=== PATIENT | male | born 1990 | race African-American/Black ===

== ENCOUNTER 2020-08-27 12:33 | Emergency (ER) | payer OTHER, MEDICAID, SELFPAY ==
[2020-08-27 12:34] VITALS: BP 137/84; PULSE 74; RESP 15; TEMP 37.1; O2SAT 98; BMI 26.4
--- NOTE | 2020-08-27 12:39 | DI.RAD.S_ITS ---
PROCEDURE: XR SHOULDER RT MIN 2V INDICATIONS: right shoulder pain/injury TECHNIQUE: 3 views of the shoulder were acquired. COMPARISON: None. FINDINGS: Bones: No fractures or dislocations. No suspicious bony lesions. Visualized ribs appear intact. Soft tissues: No suspicious soft tissue calcifications. IMPRESSION: No shoulder fracture or dislocation. Dictated by: Herrera Gallo M.D. on 08/27/2020 at 13:06 Approved by: Herrera Gallo M.D. on 08/27/2020 at 13:08
--- NOTE | 2020-08-27 12:49 | ED.GENADULT ---
HPI - General Adult General Chief complaint: Extremity Injury, Upper Stated complaint: RIGHT SHOULDER FEELS DISLOCATED Time Seen by Provider: 08/27/20 12:44 Source: patient Mode of arrival: Ambulatory Limitations: no limitations History of Present Illness HPI narrative: [age] year hyhcm-zmpz-lqmlkmsb male here for evaluation of right shoulder injury. Patient states he was playing basketball. He went up from a rebound and when he came down hit his elbow on another individual shoulder. He had pain in the front and back of his shoulder since that time. Has not tried anything for it. No prior injuries to the shoulder. Has not tried anything for the symptoms prior to arrival. Related Data Allergies Allergy/AdvReac Type Severity Reaction Status Date / Time No Known Drug Allergies Allergy Verified 08/27/20 12:38 Review of Systems Constitutional Constitutional: Denies chills and Denies fever(s) Cardiovascular Cardiovascular: Denies chest pain and Denies dyspnea Respiratory Respiratory: Denies dyspnea Gastrointestinal Gastrointestinal: Denies abdominal pain Musculoskeletal Comments: Right shoulder pain Integumentary/Breasts Skin/Breast: Denies lesions and Denies rash Neurologic Neurologic: Denies behavioral changes Psychiatric Psychiatric: Denies behavioral changes Hematologic/Lymphatic On Anticoagulants: No Allergic/Immunologic Allergic/Immunologic: Denies urticaria Patient History Medical History Healthy adult Social History Smoking Status: Current every day smoker Smoking Status: Current every day smoker alcohol intake frequency: holidays/special occasions only Substance Use Type: marijuana Exam Initial Vital Signs Initial Vital Signs: Vital Signs Temperature 98.7 F 08/27/20 12:34 Pulse Rate 74 08/27/20 12:34 Respiratory Rate 15 08/27/20 12:34 Blood Pressure 137/84 08/27/20 12:34 Pulse Oximetry 98 08/27/20 12:34 Const General: cooperative and healthy appearing Resp Effort & Inspection: normal respiratory effort Cardio Rate: regular rate Pulses: radial pulses present on the right Skin Lesions: no lesions Rashes: no rashes Neuro General: patient alert and patient awake Cognition: normal cognition Speech: speech normal Extrem Other: Patient is able to touch his left shoulder his right hand. His right elbow and right wrist are unremarkable. Does have tenderness to palpation over the scapula also over the AC joint. Does have limited range of motion of his right shoulder secondary to pain. Psych Appearance: grossly normal and well kempt Course Orders Ordered: ED Orders 08/27/20 12:39 XR shoulder RT min 2V Stat Vital Signs Vital signs: Vital Signs - 8 hr 08/27/20 12:34 Temperature 98.7 F Pulse Rate 74 Respiratory Rate 15 Blood Pressure 137/84 Pulse Oximetry 98 Medical Decision Making Imaging Data Extremity x-ray #1: Radiologist's Impression: [address] [id number] ReportSigned Patient: Ian Georges WMR#: [id number]: 1990Acct:[id number]/Sex: 30 / MDate of Service: 08/27/20Loc: EDAccession Number: [id number] Procedure: XR shoulder RT min 2V Ordering Provider: Danilo Fan D.O. PROCEDURE: XR SHOULDER RT MIN 2V INDICATIONS: right shoulder pain/injury TECHNIQUE: 3 views of the shoulder were acquired. COMPARISON: None. FINDINGS: Bones: No fractures or dislocations. No suspicious bony lesions. Visualized ribs appear intact. Soft tissues: No suspicious soft tissue calcifications. IMPRESSION: No shoulder fracture or dislocation. Dictated by: Herrera Gallo M.D. on 08/27/2020 at 13:06 Approved by: Herrera Gallo M.D. on 08/27/2020 at 13:08 [facility] Narrative Medical decision making narrative: Patient is neurovascularly intact. There are no fractures or dislocations on the x-rays. No indication for further workup here in the emergency department. I did discuss this with him. Discussed use of Tylenol/ibuprofen for any discomfort. He was given return precautions. He expressed understanding and agreement pain Discharge Plan Departure Patient Disposition: Home Clinical Impression: Injury of shoulder, right Instructions: How To Perform RICE (Rest, Ice, Compress, Elevate) Activity Restrictions/Additional Instructions: There were no fractures or dislocations on the x-rays. You have no restrictions on your activity. Contact your primary provider for a follow-up. Return to the emergency department for any new or worsening symptoms Referrals: Halina Moeller PA-C [Primary Care Provider] -
== END 2020-08-27 13:20 | disposition home or self-care (01) ==
PROVIDERS: Emergency Provider Emergency Medicine; PCP Physician Assistant
DX: S49.91XA Unspecified injury of right shoulder and upper arm, initial encounter (principal); W18.30XA Fall on same level, unspecified, initial encounter; Y93.67 Activity, basketball
CPT/HCPCS: 73030; 99281; 99283

== ENCOUNTER 2022-02-25 18:00 | Emergency (ER) | payer OTHER, MEDICAID, SELFPAY ==
[2022-02-25 18:33] VITALS: BP 118/75; PULSE 70; RESP 20; TEMP 36.8; O2SAT 99; BMI 26.4
--- NOTE | 2022-02-25 18:46 | DI.RAD.S_ITS ---
PROCEDURE: XR ACUTE ABDOMEN SERIES INDICATIONS: increased pain on rt flank when breathing TECHNIQUE: One view chest and two views of the abdomen were acquired. COMPARISON: None. FINDINGS: Surgical changes and devices: None. Chest: Right lower lobe infiltrate or atelectasis. Heart size is normal. No pleural effusions. No pneumoperitoneum. Abdomen: Bowel gas pattern is normal. Moderate amount of stool in colon. No suspicious calcifications. Visualized solid organ contours appear normal. Bones: No suspicious bony lesions. IMPRESSION: 1. Right lower lobe infiltrate or atelectasis. 2. Normal bowel gas pattern. 3. Moderate amount stool in colon. Dictated by: Diane Bailey M.D. on 02/25/2022 at 19:32 Approved by: Diane Bailey M.D. on 02/25/2022 at 19:34
--- NOTE | 2022-02-25 22:31 | ED_ITS ---
HPI - Back Pain/Injury General Chief Complaint: Back Pain/Injury Stated Complaint: R side abd pain, going towards back, worsening Time Seen by Provider: 02/25/22 21:45 Source: patient History of Present Illness HPI Narrative: 31-year-old male smoker without significant medical history presents with his and 2 young children in the chief complaint of some right lateral, lower rib pain that radiates to his back. He denies any specific injury and has had no runny nose, sore throat or cough. He states that he noticed it over the past day or 2 and he thinks it essentially came out of nowhere. He states it is significantly worse when he takes a deep breath and on occasion causes remarkable pain. He is had no coughing up blood, he denies any recent travel, injury, hospitalization, history of clot, cancer or lower extremity pain, swelling or redness. He denies abdominal pain, nausea or vomiting. He denies any constipation or diarrhea. He denies dysuria, frequency or urgency. Related Data Previous Rx's Medication Instructions Recorded ketorolac 10 mg tablet 10 mg PO Q6H PRN pain #14 tabs 02/26/22 levofloxacin 750 mg tablet 750 mg PO DAILY #4 tabs 02/26/22 Allergies Allergy/AdvReac Type Severity Reaction Status Date / Time No Known Drug Allergies Allergy Verified 02/25/22 17:41 Review of Systems Review of Systems Narrative: GENERAL: Denies chills, fatigue, malaise, fever, sweats. HEENT: Denies sinus pain, ear pain, sore throat, difficulty swallowing, dizziness. RESPIRATORY: Denies dyspnea, cough, wheezing, hemoptysis, sputum. CARDIOVASCULAR: See HPI GASTROINTESTINAL: Denies nausea, vomiting, abdominal pain, diarrhea, constipation, melena. : Denies dysuria, frequency, incontinence, hematuria, urinary retention. MUSCULOSKELETAL: denies weakness, joint pain, or bony pain SKIN: Denies rash, skin lesions, or other NEUROLOGIC: Denies weakness, headache, numbness, change in speech, confusion, seizures, incoordination. PSYCHIATRIC: No concerning psychosocial issues. 12 point review of systems is negative except for those stated above Patient History Medical History Healthy adult Social History Smoking Status: Current every day smoker Smoking Status: Current every day smoker alcohol intake frequency: holidays/special occasions only Substance Use Type: marijuana Exam Narrative Exam Narrative: GENERAL: [31] year old patient appears stated age. Well-developed patient, in mild distress. HEAD: Atraumatic. Normocephalic. EYES: Pupils equal round and reactive. Extraocular motions intact. No scleral icterus. No injection or drainage. ENT: Nose without bleeding, purulent drainage. Throat without erythema, tonsilla r hypertrophy or exudate. Airway patent. NECK: Trachea midline. Non tender CARDIOVASCULAR: Regular rate and rhythm without murmurs, gallops, or rubs. RESPIRATORY: Clear to auscultation. Breath sounds equal bilaterally. No wheezes, rales, or rhonchi. Though deep breath clearly worsens the pain that brought him in GASTROINTESTINAL: Abdomen soft, non-tender, nondistended. EXTREMITIES: No edema or joint tenderness. BACK: Nontender without deformity or crepitance. No flank tenderness. NEURO: AOx3. SKIN: No rash or erythema of visible areas Initial Vital Signs Initial Vital Signs: Vital Signs Temperature 98.3 F 02/25/22 18:33 Pulse Rate 70 02/25/22 18:33 Respiratory Rate 20 02/25/22 18:33 Blood Pressure 118/75 02/25/22 18:33 Pulse Oximetry 99 02/25/22 18:33 Oxygen Delivery Method 02/25/22 18:33 Course Orders Ordered: ED Orders 02/25/22 18:46 XR acute abdomen series Stat 02/25/22 22:40 Complete Blood Count AUTO DIFF Stat Comprehensive Metabolic Panel Stat D Dimer Stat Prothrombin Time INR Stat Troponin & CK Cardiac Panel Stat 02/25/22 23:12 CT angio chest PE protocol Stat Discontinued Medications Ketorolac Tromethamine (Ketorolac 30 Mg/Ml Vial) 15 mg IV NOW ONE Stop: 02/25/22 22:27 Last Admin: 02/25/22 22:43 Dose: 15 mg Documented By: MAREK Levofloxacin (Levofloxacin 250 Mg Tablet) 750 mg PO NOW ONE Stop: 02/26/22 00:20 Last Admin: 02/26/22 00:25 Dose: 750 mg Documented By: MAREK Vital Signs Vital signs: Vital Signs - 8 hr 02/25/22 18:33 Temperature 98.3 F Pulse Rate 70 Respiratory Rate 20 Blood Pressure 118/75 Pulse Oximetry 99 Oxygen Delivery Method Room Air MDM - Back Pain/Injury Lab Data Result diagrams: 02/25/22 22:40 02/25/22 22:40 Labs: Lab Results 02/25/22 02/25/22 02/25/22 Range/Units 22:40 22:40 22:40 WBC 9.3 (4.5-11.0) X10^3/uL RBC 5.74 (4.5-5.9) X10^6/uL Hgb 13.2 L (13.5-17.5) g/dL Hct 41.1 (41-53) % MCV 71.6 L (80-100) fL MCH 22.9 L (26-34) PG MCHC 32.0 (30-36) % RDW 17.1 H (11.6-14.8) % Plt Count 188 (150-400) X10^3/uL Neut % (Auto) 49.6 L (50-75) % Lymph % (Auto) 38.2 (25-40) % [place] % (Auto) 10.1 (3-14) % Eos % (Auto) 1.5 L (2-4) % Baso % (Auto) 0.6 (0-2) % Neut # (Auto) 4600 (1681-4984) /uL Lymph # (Auto) 3600 (4091-1744) /uL [place] # (Auto) 900 (0-900) /uL Eos # (Auto) 100 (0-450) /uL Baso # (Auto) 100 (0-100) /uL PT (10.1-12.7) SECONDS INR (0.9-1.3) D-Dimer 566 H (<500) ng/ml Sodium 140 (137-145) mmol/L Potassium 4.5 (3.4-5.1) mmol/L Chloride 107 (98-107) mmol/L Carbon Dioxide 26 (22-32) mmol/L BUN 13 (9-20) mg/dL Creatinine 0.94 (0.66-1.25) mg/dL Estimated GFR > 60 (>60) mL/min BUN/Creatinine Ratio 13.8 (6-22) Glucose 89 (70-100) mg/dL Calcium 8.7 (8.4-10.2) mg/dL Total Bilirubin 0.2 (0.2-1.3) mg/dL AST 26 (17-59) IU/L ALT 26 (<50) IU/L Alkaline Phosphatase 73 (38-126) U/L Total Creatine Kinase (55-170) U/L CK-MB (CK-2) (<2.37) ng/mL CK-MB (CK-2) Rel Index (1.5-5.0) % Troponin I (0.01-0.034) ng/mL Total Protein 7.0 (6.3-8.2) g/dL Albumin 4.0 (3.5-5.0) g/dL Globulin 3.0 (1.7-4.1) g/dL Albumin/Globulin Ratio 1.3 (1.0-2.8) 02/25/22 02/25/22 Range/Units 22:40 22:40 WBC (4.5-11.0) X10^3/uL RBC (4.5-5.9) X10^6/uL Hgb (13.5-17.5) g/dL Hct (41-53) % MCV (80-100) fL MCH (26-34) PG MCHC (30-36) % RDW (11.6-14.8) % Plt Count (150-400) X10^3/uL Neut % (Auto) (50-75) % Lymph % (Auto) (25-40) % [place] % (Auto) (3-14) % Eos % (Auto) (2-4) % Baso % (Auto) (0-2) % Neut # (Auto) (8998-9366) /uL Lymph # (Auto) (4682-1311) /uL [place] # (Auto) (0-900) /uL Eos # (Auto) (0-450) /uL Baso # (Auto) (0-100) /uL PT 12.4 (10.1-12.7) SECONDS INR 1.1 (0.9-1.3) D-Dimer (<500) ng/ml Sodium (137-145) mmol/L Potassium (3.4-5.1) mmol/L Chloride (98-107) mmol/L Carbon Dioxide (22-32) mmol/L BUN (9-20) mg/dL Creatinine (0.66-1.25) mg/dL Estimated GFR (>60) mL/min BUN/Creatinine Ratio (6-22) Glucose (70-100) mg/dL Calcium (8.4-10.2) mg/dL Total Bilirubin (0.2-1.3) mg/dL AST (17-59) IU/L ALT (<50) IU/L Alkaline Phosphatase (38-126) U/L Total Creatine Kinase 247 H (55-170) U/L CK-MB (CK-2) 1.24 (<2.37) ng/mL CK-MB (CK-2) Rel Index 0.5 L (1.5-5.0) % Troponin I < 0.012 (0.01-0.034) ng/mL Total Protein (6.3-8.2) g/dL Albumin (3.5-5.0) g/dL Globulin (1.7-4.1) g/dL Albumin/Globulin Ratio (1.0-2.8) Imaging Data Chest x-ray: Radiologist's Impression: [place] [address] XRay Report Signed Patient: Ian Georges MR#: [id number] : 1990 Acct:[id number] Age/Sex: 31 / M Date of Service: 02/25/22 Loc: ED Accession Number: [id number] ?? Procedure: XR acute abdomen series Ordering Provider: Rom Worthington D.O. PROCEDURE:? XR ACUTE ABDOMEN SERIES ? INDICATIONS:? increased pain on rt flank when breathing ? TECHNIQUE:? One view chest and two views of the abdomen were acquired.? ? COMPARISON:? None. ? FINDINGS:? ? Surgical changes and devices:? None.? ? Chest:? Right lower lobe infiltrate or atelectasis.? Heart size is normal.? No pleural effusions.? No pneumoperitoneum.? ? Abdomen:? Bowel gas pattern is normal.? Moderate amount of stool in colon.? No suspicious calcifications.? Visualized solid organ contours appear normal.? ? Bones:? No suspicious bony lesions.? ? IMPRESSION:? ? 1. Right lower lobe infiltrate or atelectasis.? 2. Normal bowel gas pattern. 3. Moderate amount stool in colon.? ? ? Dictated by: Diane Bailey M.D. on 02/25/2022 at 19:32 ? ? Approved by: Diane Bailey M.D. on 02/25/2022 at 19:34 ? CT scan - chest: Radiologist's Impression: Close Chest CTA (Signed) Adan Arroyo - 02/25/22 Chest/Abdomen X-ray (Signed) Diane Bailey - 02/25/22 Launch?[place] [address] CT Scan Report Signed Patient: Ian Georges MR#: [id number] : 1990 Acct:[id number] Age/Sex: 31 / M Date of Service: 02/25/22 Loc: ED Accession Number: [id number] ?? Procedure: CT angio chest PE protocol Ordering Provider: Rom Worthington D.O. PROCEDURE:? CT ANGIO CHEST PE PROTOCOL ? INDICATIONS:? Chest pain, critical dimer, abnormal xray ? TECHNIQUE:? After the administration of intravenous contrast, 2 mm thick sections acquired from the pulmonary apices to the posterior costophrenic angles.? 3-dimensional maximum intensity projection (MIP) coronal and sagittal reformats were then acquired through the thorax.? For radiation dose reduction, the following was used:? automated exposure control, adjustment of mA and/or kV according to patient size.? ? COMPARISON:? [facility], CR, XR ACUTE ABDOMEN SERIES, 02/25/2022, 19:02. ? FINDINGS:? Image quality:? Excellent.? ? Pulmonary arteries:? Pulmonary arteries are normal in size, and demonstrate no intraluminal filling defects to suggest central pulmonary embolism.? ? Lungs and pleura:? Lungs are mildly abnormal with posterior right lower lobe stranding in the lung parenchyma that could represent chronic scarring but also may represent evidence of very mild or early pneumonia in that area.? No pleural effusions or pneumothorax.? Central and peripheral airways are patent.? ? Mediastinum:? Heart size is normal, without pericardial effusion.? No mediastinal or hilar adenopathy.? Thoracic aorta is normal in caliber and enhancement.? Esophagus is normal in caliber, without hiatal hernia.? ? Bones and chest wall:? No suspicious bony lesions.? Ribs and thoracic spine appear intact throughout.? Thyroid gland appears normal where well seen.? No axillary or supraclavicular adenopathy.? ? Abdomen:? Visualized upper abdominal solid organs appear normal in the early arterial phase of enhancement.? ? IMPRESSION:? No pulmonary embolus found.? Stranding at the right lung base posteriorly is seen by CT scanning, and was also identified on plain film imaging earlier same day.? This could represent chronic scarring from old inflammatory process but also very mild or early pneumonia conceivably could produce that appearance. ? ? Dictated by: Adan Arroyo M.D. on 02/25/2022 at 23:52 ? ? Approved by: Adan Arroyo M.D. on 02/25/2022 at 23:56 ? MDM Narrative Medical decision making narrative: Patient with a sharp and stabbing, pleuritic like right lower lateral chest pain that radiates to his back. It is worse with some motions but most significantly with deep breath. He is had no significant shortness of breath or cough and denies any history of blood clot. Chest x-ray with abdominal films suggests possible pneumonia, however he is had no fever nor productive cough. Given the pleuritic nature along with history of smoking D-dimer is ordered which is above the cutoff and a CT angiogram is performed. Other diagnoses such as bowel obstruction and kidney stone considered but thought less likely given lack of findings on imaging or abnormal urine. Discharge Plan Departure Patient Disposition: Home Clinical Impression: Pneumonia involving right lung Qualifiers: Pneumonia type: due to unspecified organism Lung location: lower lobe of lung Qualified Code(s): J18.9 - Pneumonia, unspecified organism Instructions: DI for Pneumonia -- Adult Activity Restrictions/Additional Instructions: *You have been diagnosed with [right-sided pneumonia, as we discussed your labs and imaging are otherwise reassuring and there is no evidence of blood clot or other significant diagnosis that would require specific or different treatment] *What to do: *Please continue to take your regular medications as directed. [x ] New medication prescriptions sent to your pharmacy: [ [facility]] [ ] New medication written as a paper prescription [ ] No new medications given *Please follow up with your primary care provider in 2-3 days, call for an appointment. Let them know you were seen in the Emergency Department and that we ask that you be seen in follow up. We will electronically transmit a record of today's note if your PCP is in our system *If you do not have a primary care provider please contact the [facility] Resource line at [phone]. They will ask some questions about your medical history and help get you set up with a doctor in the community. *Return to Emergency Department if you should have any new, worsening or concerning symptoms, such as [fever greater than 101 F, shaking chills, worsening pain, persistent vomiting or other bothersome symptoms] Prescriptions: New ketorolac 10 mg tablet 10 mg PO Q6H PRN (Reason: pain) Qty: 14 0RF levofloxacin 750 mg tablet 750 mg PO DAILY Qty: 4 0RF Referrals: Miscellaneous,Doctor, MD [Primary Care Provider] - Stand Alone Forms: Work Release Note Visit Report Forms: Patient Portal/API
[2022-02-25] MEDS: KETOROLAC 30 MG/ML VIAL 15 MG IV (22:43)
[2022-02-25 22:57] LABS: INR 1.1 (0.9-1.3); Prothrombin Time 12.4 SECONDS (10.1-12.7)
[2022-02-25 23:00] LABS: Add Manual Diff / Slide Review NO; Basophils Absolute Auto 100 /uL (0-100); Basophils Percent Auto 0.6 % (0-2); Creatine Kinase 247 U/L (55-170); Eosinophils Absolute Auto 100 /uL (0-450); Eosinophils Percent Auto 1.5 % (2-4); Hematocrit 41.1 % (41-53); Hemoglobin 13.2 g/dL (13.5-17.5); Lymphocytes Absolute Auto 3600 /uL (1100-4500); Lymphocytes Percent Auto 38.2 % (25-40); Mean Corpuscular Hemoglobin 22.9 PG (26-34); Mean Corpuscular Volume 71.6 fL (80-100); Monocytes Absolute Auto 900 /uL (0-900); Monocytes Percent Auto 10.1 % (3-14); Neutrophils Absolute Auto 4600 /uL (1500-7000); Neutrophils Percent Auto 49.6 % (50-75); Platelet Count 188 X10^3/uL (150-400); Red Blood Cell Count 5.74 X10^6/uL (4.5-5.9); Red Cell Distribution Width 17.1 % (11.6-14.8); White Blood Cell Count 9.3 X10^3/uL (4.5-11.0)
--- NOTE | 2022-02-25 23:00 | PC.NURSE ---
c/o back and flank pain was seen at [facility] earlier but continues to have pain
[2022-02-25 23:05] LABS: D Dimer 566 ng/ml (<500)
--- NOTE | 2022-02-25 23:12 | DI.CT.S_ITS ---
PROCEDURE: CT ANGIO CHEST PE PROTOCOL INDICATIONS: Chest pain, critical dimer, abnormal xray TECHNIQUE: After the administration of intravenous contrast, 2 mm thick sections acquired from the pulmonary apices to the posterior costophrenic angles. 3-dimensional maximum intensity projection (MIP) coronal and sagittal reformats were then acquired through the thorax. For radiation dose reduction, the following was used: automated exposure control, adjustment of mA and/or kV according to patient size. COMPARISON: [facility], CR, XR ACUTE ABDOMEN SERIES, 02/25/2022, 19:02. FINDINGS: Image quality: Excellent. Pulmonary arteries: Pulmonary arteries are normal in size, and demonstrate no intraluminal filling defects to suggest central pulmonary embolism. Lungs and pleura: Lungs are mildly abnormal with posterior right lower lobe stranding in the lung parenchyma that could represent chronic scarring but also may represent evidence of very mild or early pneumonia in that area. No pleural effusions or pneumothorax. Central and peripheral airways are patent. Mediastinum: Heart size is normal, without pericardial effusion. No mediastinal or hilar adenopathy. Thoracic aorta is normal in caliber and enhancement. Esophagus is normal in caliber, without hiatal hernia. Bones and chest wall: No suspicious bony lesions. Ribs and thoracic spine appear intact throughout. Thyroid gland appears normal where well seen. No axillary or supraclavicular adenopathy. Abdomen: Visualized upper abdominal solid organs appear normal in the early arterial phase of enhancement. IMPRESSION: No pulmonary embolus found. Stranding at the right lung base posteriorly is seen by CT scanning, and was also identified on plain film imaging earlier same day. This could represent chronic scarring from old inflammatory process but also very mild or early pneumonia conceivably could produce that appearance. Dictated by: Adan Arroyo M.D. on 02/25/2022 at 23:52 Approved by: Adan Arroyo M.D. on 02/25/2022 at 23:56
[2022-02-25 23:13] LABS: Troponin I < 0.012 ng/mL (0.01-0.034)
[2022-02-25 23:16] LABS: Alanine Aminotransferase 26 IU/L (<50); Albumin Globulin Ratio 1.3 (1.0-2.8); Alkaline Phosphatase 73 U/L (38-126); Aspartate Aminotransferase 26 IU/L (17-59); BUN Creatinine Ratio 13.8 (6-22); Bilirubin Total 0.2 mg/dL (0.2-1.3); Blood Urea Nitrogen 13 mg/dL (9-20); CKMB % Relative Index 0.5 % (1.5-5.0); Calcium 8.7 mg/dL (8.4-10.2); Carbon Dioxide 26 mmol/L (22-32); Chloride 107 mmol/L (98-107); Creatine Kinase MB 1.24 ng/mL (<2.37); Estimated Glomerular Filt Rate > 60 mL/min (>60); Glucose 89 mg/dL (70-100); HEMOLYSIS 16 (0-50); Potassium 4.5 mmol/L (3.4-5.1); Sodium 140 mmol/L (137-145)
[2022-02-26] MEDS: levoFLOXacin 250 MG TABLET 750 MG PO (00:25)
== END 2022-02-26 00:31 | disposition home or self-care (01) ==
PROVIDERS: Emergency Provider Emergency Medicine
DX: J18.9 Pneumonia, unspecified organism (principal); R07.9 Chest pain, unspecified
CPT/HCPCS: 36415; 71275; 74022; 80053; 82550; 82553; 84484; 85025; 85379; 85610; 96374; 99284; J1885; Q9967

== ENCOUNTER 2025-03-09 09:34 | Emergency (ER) | payer MEDICAID, SELFPAY ==
[2025-03-09 09:42] VITALS: BP 127/77; PULSE 69; RESP 18; TEMP 36.8; O2SAT 97; BMI 28.6
--- NOTE | 2025-03-09 09:42 | EKG_ITS ---
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
--- NOTE | 2025-03-09 09:53 | DI.RAD.S_ITS ---
PROCEDURE: XR CHEST 1V INDICATIONS: Chest Pain TECHNIQUE: One view of the chest was acquired. COMPARISON: None. FINDINGS: Surgical changes and devices: None. Lungs and pleura: Lungs are clear. No pleural effusions or pneumothorax. Mediastinum: Mediastinal contours appear normal. Heart size is normal. Bones and chest wall: No suspicious bony lesions. Overlying soft tissues appear unremarkable. IMPRESSION: No acute cardiopulmonary abnormality is seen. Dictated by: Amadou Mccauley M.D. on 03/09/2025 at 10:18 Approved by: Amadou Mccauley M.D. on 03/09/2025 at 10:18
[2025-03-09 10:12] LABS: Add Manual Diff / Slide Review NO; Hematocrit 44.1 % (41-53); Hemoglobin 14.2 g/dL (13.5-17.5); Lymphocytes Absolute Auto 2600 /uL (1100-4500); Mean Corpuscular HGB Conc 32.3 % (30-36); Mean Corpuscular Hemoglobin 23.0 PG (26-34); Mean Corpuscular Volume 71.0 fL (80-100); Platelet Count 205 X10^3/uL (150-400)
[2025-03-09] MEDS: MORPHINE 4 MG/ML INJ IV (10:14)
[2025-03-09] MEDS: KETOROLAC 30 MG/ML VIAL IV (10:14)
[2025-03-09 10:21] LABS: INR 1.1 (0.9-1.3); Prothrombin Time 12.0 SECONDS (9.4-12.5)
[2025-03-09 10:24] LABS: PTT Partial Thromboplastin Tim 31 SECONDS (25.1-36.5)
--- NOTE | 2025-03-09 10:24 | ED_ITS ---
HPI - SOB/Dyspnea General Chief Complaint: Shortness of Breath/Dyspnea Stated Complaint: Right lung pain when breathing in, x 2 days Time Seen by Provider: 03/09/25 10:05 Source: patient Mode of arrival: Ambulatory Limitations: no limitations History of Present Illness HPI Narrative: 34-year-old male patient with a history of tobacco and marijuana smoking who complains of worsening left-sided pleuritic pain for 3 days with no fever or chills. When he had this pain before he said he was diagnosed with pneumonia. Pain is worse with deep breathing. Related Data Previous Rx's ?Medication ?Instructions ?Recorded ketorolac 10 mg tablet 10 mg PO Q6H PRN pain #14 ta bs 02/26/22 levofloxacin 750 mg tablet 750 mg PO DAILY #4 tabs 02/09 tramadol 50 mg tablet 50 mg PO Q6H PRN pain #7 tab s 03/09/25 Allergies Allergy/AdvReac Type Severity Reaction Status Date / Time No Known Drug Allergies Allergy Verified 02/25/22 17:41 Review of Systems Review of Systems ROS Unobtainable: All systems reviewed & are unremarkable except as noted in HPI and below Cardiovascular Cardiovascular: Reports as per HPI Respiratory Respiratory: Reports as per HPI Patient History Medical History Healthy adult Social History Smoking Status: Current every day smoker Smoking Status: Current every day smoker alcohol intake frequency: holidays/special occasions only Alcohol type: beer Exam Narrative Exam Narrative: General: Alert and conversant. Moderate distress. Appears well nourished and well hydrated Neck: No tenderness or adenopathy. No meningismus. No JVD Lungs: Clear to auscultation with good air movement. No wheezing, rales or rhonchi. No respiratory distress Cardiac: Regular rate and rhythm with no appreciable murmur or gallop Abdomen: Soft, nontender with no distention or masses. Normal bowel sounds. No rebound or guarding Musculoskeletal: Exam of the extremities, axial spine and ribcage reveals no deformity, bony tenderness or swelling. Range of motion intact Neuro: Alert and oriented. Cranial nerves, motor, sensory and cerebellar all grossly intact. No focal deficit Skin: Warm and normal color. No rashes Psychological: Normal affect and interaction. No evidence of delusion or psychosis. Normal mood. Initial Vital Signs Initial Vital Signs: Vital Signs Temperature 98.3 F 03/09/25 09:42 Pulse Rate 69 03/09/25 09:42 Respiratory Rate 18 03/09/25 09:42 Blood Pressure 127/77 03/09/25 09:42 Pulse Oximetry 97 03/09/25 09:42 Oxygen Delivery Method Room Air 03/09/25 09:42 Course Course Course Narrative: 11:00 Improved with ketorolac and morphine Orders Ordered: ED Orders 03/09/25 09:42 EKG-12 Lead Stat 03/09/25 09:53 XR chest 1V Stat 03/09/25 10:00 Complete Blood Count AUTO DIFF Stat Comprehensive Metabolic Panel Stat Lipase Stat Magnesium Stat NT-proBNP (BNP-Adult 18+) Stat PTT Partial Thromboplastin Chandana Stat Prothrombin Time INR Stat Troponin & CK Cardiac Panel Stat Discontinued Medications Aspirin (Aspirin 81 Mg Chew Tab) 324 mg PO NOW ONE Stop: 03/09/25 09:54 Ketorolac Tromethamine (Ketorolac 30 Mg/Ml Vial) 30 mg IV NOW ONE Stop: 03/09/25 10:08 Last Admin: 03/09/25 10:14 Dose: 30 mg Documented By: CHARMAINE Morphine Sulfate (Morphine 4 Mg/Ml Inj) 4 mg IV NOW ONE Stop: 03/09/25 10:08 Last Admin: 03/09/25 10:14 Dose: 4 mg Documented By: CHARMAINE Vital Signs Vital signs: Vital Signs - 8 hr 03/09/25 09:42 Temperature 98.3 F Pulse Rate 69 Respiratory Rate 18 Blood Pressure 127/77 Pulse Oximetry 97 Oxygen Delivery Method Room Air MDM - SOB/Dyspnea Lab Data Attestation: I reviewed the patient's lab results. Lab results narrative: CBC, CMP and troponin all unremarkable 03/09/25 10:00 03/09/25 10:00 Labs: Lab Results 03/09/25 Range/Units 10:00 WBC 6.8 (4.5-11.0) X10^3/uL RBC 6.20 H (4.5-5.9) X10^6/uL Hgb 14.2 (13.5-17.5) g/dL Hct 44.1 (41-53) % MCV 71.0 L (80-100) fL MCH 23.0 L (26-34) PG MCHC 32.3 (30-36) % RDW 16.9 H (11.6-14.8) % Plt Count 205 (150-400) X10^3/uL Neut % (Auto) 52.2 (50-75) % Lymph % (Auto) 38.9 (25-40) % [place] % (Auto) 7.1 (3-14) % Eos % (Auto) 1.3 L (2-4) % Baso % (Auto) 0.5 (0-2) % Neut # (Auto) 3600 (5170-4033) /uL Lymph # (Auto) 2600 (0266-3031) /uL [place] # (Auto) 500 (0-900) /uL Eos # (Auto) 100 (0-450) /uL Baso # (Auto) 0 (0-100) /uL RBC Morphology B Hypochromasia 2+ H Poikilocytosis 1+ H Anisocytosis 1+ H Microcytosis 2+ H PT 12.0 (9.4-12.5) SECONDS INR 1.1 (0.9-1.3) APTT 31 (25.1-36.5) SECONDS Sodium 140 (137-145) mmol/L Potassium 4.5 (3.4-5.1) mmol/L Chloride 102 (98-107) mmol/L Carbon Dioxide 30 (22-32) mmol/L BUN 14 (9-20) mg/dL Creatinine 1.00 (0.66-1.25) mg/dL Estimated GFR > 60 (>60) mL/min BUN/Creatinine Ratio 14.0 (6-22) Glucose 95 (70-99) mg/dL Calcium 9.5 (8.4-10.2) mg/dL Magnesium 2.0 (1.6-2.3) mg/dL Total Bilirubin 0.5 (0.2-1.3) mg/dL AST 29 (17-59) IU/L ALT 28 (<50) IU/L Alkaline Phosphatase 60 (38-126) U/L Total Creatine Kinase 146 (55-170) U/L Troponin I < 0.012 (0.01-0.034) ng/mL NT-Pro-B Natriuret Pep 53 (<125) pg/mL Total Protein 8.5 H (6.3-8.2) g/dL Albumin 4.8 (3.5-5.0) g/dL Globulin 3.7 (1.7-4.1) g/dL Albumin/Globulin Ratio 1.3 (1.0-2.8) Lipase 33 (23-300) U/L Imaging Data Chest x-ray: My Impression: Unremarkable. No acute disease ECG Data Attestation: I personally reviewed and interpreted this ECG as follows: (Sinus rhythm at a rate of 73. [place] and intervals normal. No ischemic changes ) MDM Narrative Medical decision making narrative: Patient had right-sided pleuritic pain with unremarkable lab work and chest x- ray. No recent illness. Unsure why he has the pleuritic pain but there is no chest wall pain based on exam and this does appear to be pleurisy. Plan will be ibuprofen and tramadol and follow up with primary care. Return to the ER if worse. No other workup is indicated on an emergent basis given his improvement on Toradol. His negative chest x-ray and lab work. Discharge Plan Departure Patient Disposition: Home Clinical Impression: Pleuritic chest pain Instructions: Pleurisy Activity Restrictions/Additional Instructions: Ibuprofen, 400 mg up to 4 times a day. Tramadol as needed for pain.. Follow up with your doctor if not improving. Return to the ER if worse Prescriptions: New tramadol 50 mg tablet 50 mg PO Q6H PRN (Reason: pain) Qty: 7 0RF No Action ketorolac 10 mg tablet 10 mg PO Q6H PRN (Reason: pain) Qty: 14 0RF levofloxacin 750 mg tablet 750 mg PO DAILY Qty: 4 0RF Stand Alone Forms: Patient Portal/API, Work Release Note
[2025-03-09 10:25] LABS: Alanine Aminotransferase 28 IU/L (<50); Albumin 4.8 g/dL (3.5-5.0); Albumin Globulin Ratio 1.3 (1.0-2.8); Alkaline Phosphatase 60 U/L (38-126); Blood Urea Nitrogen 14 mg/dL (9-20); Calcium 9.5 mg/dL (8.4-10.2); Carbon Dioxide 30 mmol/L (22-32); Chloride 102 mmol/L (98-107); Creatine Kinase 146 U/L (55-170); Estimated Glomerular Filt Rate > 60 mL/min (>60); Globulin 3.7 g/dL (1.7-4.1); Glucose 95 mg/dL (70-99); HEMOLYSIS < 15 (0-50); Lipase 33 U/L (23-300); Magnesium 2.0 mg/dL (1.6-2.3); Potassium 4.5 mmol/L (3.4-5.1); Sodium 140 mmol/L (137-145); Total Protein 8.5 g/dL (6.3-8.2)
[2025-03-09 10:37] LABS: NT-proBNP (BNP-Adult 18+) 53 pg/mL (<125); Troponin I < 0.012 ng/mL (0.01-0.034)
[2025-03-09 10:41] LABS: Hypochromasia 2+; Microcytosis 2+
[2025-03-09 10:42] LABS: Anisocytosis 1+; Poikilocytosis 1+
[2025-03-09 10:43] LABS: RBC Morphology B
[2025-03-09 12:43] VITALS: BP 118/75; PULSE 83; RESP 20; O2SAT 100
== END 2025-03-09 12:44 | disposition home or self-care (01) ==
PROVIDERS: Emergency Provider Emergency Medicine
DX: R07.81 Pleurodynia (principal)
CPT/HCPCS: 36415; 71045; 80053; 82550; 83690; 83735; 83880; 84484; 85025; 85610; 85730; 93005; 96374; 96375; 99284; J1885; J2272

== ENCOUNTER → 2025-04-20 15:23 | Outpatient (CLI) | payer OTHER, SELFPAY ==
[2025-04-20 17:51] LABS: HEMOLYSIS < 15 (0-50); Iron 102 ug/dL (49-181)
[2025-04-20 17:52] LABS: Cholesterol 213 mg/dL (140-199); HDL Cholesterol 50 mg/dL (40-60); Triglycerides 143 mg/dL (35-150)
[2025-04-20 18:02] LABS: Percent Iron Saturation 26 % (20-50); Total Iron Binding Capacity 385 ug/dL (261-462); Transferrin 319 mg/dL (206-381)
[2025-04-20 18:29] LABS: Ferritin 43 ng/mL (18-464)
[2025-04-20 18:59] LABS: Hemoglobin A1C% w Est Avg Glu 5.3 % (4.0-6.0)
[2025-04-21 15:19] LABS: HIV 1 & 2 Ab/Ag 4th Gen Combo NEGATIVE (NEGATIVE); Hep C Virus Ab w/Reflex Quant NEGATIVE s/c (NEGATIVE)
== END ==
PROVIDERS: PCP Family Medicine; Referring Provider Family Medicine; Visit Provider Family Medicine
DX: R71.8 Other abnormality of red blood cells (principal); R35.89 Other polyuria; R31.9 Hematuria, unspecified; F17.200 Nicotine dependence, unspecified, uncomplicated
CPT/HCPCS: 36415; 80061; 82728; 83036; 83540; 83550; 86803; 87389

== ENCOUNTER → 2025-05-11 10:33 | Outpatient (CLI) | payer OTHER, SELFPAY ==
[2025-05-11 10:53] LABS: Hematocrit 44.4 % (41-53); Hemoglobin 14.3 g/dL (13.5-17.5); Mean Corpuscular HGB Conc 32.2 % (30-36); Mean Corpuscular Hemoglobin 23.0 PG (26-34); Mean Corpuscular Volume 71.5 fL (80-100); Platelet Count 195 X10^3/uL (150-400)
[2025-05-11 11:31] LABS: Culture Indicated Urine Cult Not Indicated
[2025-05-11 12:18] LABS: Reticulocyte Count, Percent 0.6 % (0.9-2.6)
[2025-05-11 14:32] LABS: Atypical Lymphocytes Percent 1.0 %; Lymphocytes Percent Manual 49.0 % (25-45); Monocytes Percent Manual 2.0 % (2-11); Neutrophils Absolute Manual 2640 /uL (3000-5900); Segmented Neutrophils Percent 48.0 % (38-70); Total Cells Counted 100
[2025-05-11 14:34] LABS: Poikilocytosis 1+
== END ==
PROVIDERS: PCP Family Medicine; Referring Provider Family Medicine; Visit Provider Family Medicine
DX: R71.8 Other abnormality of red blood cells (principal); R31.9 Hematuria, unspecified
CPT/HCPCS: 36415; 81015; 85025; 85045